=== PATIENT | male | born 1945 | race Caucasian/White ===

== ENCOUNTER 2016-05-04 09:14 | Emergency (ER) | payer MEDICARE, BC ==
[~2016-05-04] VITALS: Ht 177.8 cm; Wt 84.1 kg
[~2016-05-04 09:14] MED LIST: ADVIL 200MG TA200 MG PO; ASPIRIN 32325 MG/TA1 PO; ASPIRIN E.C.325 MG PO; FLOMAX0.4 MG PO; IBU800 M1 PO; NO HOME MEDICATIONS; NORCO 325 MG-51 TAB PO; PERCOCET 325 MG1 TA2 PO
[2016-05-04 09:16] VITALS: TEMP 97.1
[2016-05-04] MEDS ORDERED: DIOVAN/HCT 12.51 TA1 PO (09:19)
[2016-05-04] MEDS ORDERED: NEXIUM 40MG40 MG PO (09:19)
[2016-05-04] MEDS ORDERED: ASPIRIN 81M81 MG/TA2 PO (09:20)
[2016-05-04 09:43] LABS: BASO # 0.1 (0.0-0.2); EOS # 0.3 (0.0-0.7); EOS % 3.6 % (0-4.0); GRAN # 4.6 (1.4-6.5); GRAN % 57.7 % (42.2-75.2); HEMATOCRIT 46.4 % (42.0-52.0); HEMOGLOBIN 16.1 g/dl (13.5-18.0); LYMPH % 25.2 % (20.0-51.0); MEAN CELL VOLUME 96 fl (80.0-100.0); MEAN CORPUSCULAR HEMOGLOBIN 33 pg (27.0-31.0); MEAN CORPUSCULAR HGB CONC 35 g/dl (33.0-37.0); MEAN PLATELET VOLUME 9.9 fl (7.4-10.4); MONO % 12.1 % (1.7-9.3); PLATELET COUNT 191 K/mm3 (130-400); RED BLOOD COUNT 4.86 M/mm3 (4.20-5.60); REDCELL DISTRIBUTION WIDTH-CV 12.6 % (11.5-14.5)
[2016-05-04 09:47] LABS: ADJUSTED CALCIUM 9.3 mg/dL (8.4-10.2); ALBUMIN 4.2 gm/dL (3.5-5.0); BILIRUBIN,TOTAL 0.9 mg/dL (0.0-1.0); CALCIUM 9.5 mg/dL (8.4-10.2); CREATININE, serum 1.05 mg/dL (0.66-1.25); POTASSIUM 4.2 mmol/L (3.4-5.0); TOTAL PROTEIN 7.9 gm/dL (6.4-8.2)
[2016-05-04 10:45] LABS: PH 5 (5-8); SQUAMOUS EPITHELIAL None Seen /hpf; URINE APPEARANCE Hazy; URINE BACTERIA None Seen /hpf; URINE BILIRUBIN Negative (NEGATIVE); URINE BLOOD 3+ (NEGATIVE); URINE COLOR Yellow; URINE GLUCOSE Negative (NEGATIVE); URINE KETONE Negative (NEGATIVE); URINE RBC >50 /hpf; URINE UROBILINOGEN Negative (NEGATIVE)
[2016-05-04] MEDS ORDERED: FLOMAX 0.40.4 MG/CAP PO (11:10)
[2016-05-04] MEDS ORDERED: PERCOCET 325 MG1 TA2 PO (11:10)
[2016-05-04] MEDS ORDERED: ZOFRAN ODT4 MG PO (11:10)
[2016-05-04 11:14] VITALS: BP 168/91; PULSE 86
== END 2016-05-04 11:24 | disposition home or self-care (01) ==
LOC: COL.ER 09:14
PROVIDERS: Emergency Medicine
DX: N20.1 Calculus of ureter (principal); N20.0 Calculus of kidney; Z87.442 Personal history of urinary calculi; I10 Essential (primary) hypertension; F17.210 Nicotine dependence, cigarettes, uncomplicated
CPT/HCPCS: J1885; J2405; J3010; J7030

== ENCOUNTER 2017-01-13 10:46 | Emergency (ER) | payer MEDICARE, BC ==
[~2017-01-13] VITALS: Ht 177.8 cm; Wt 85.0 kg
[~2017-01-13 10:46] MED LIST changes: +ASPIRIN 81M81 MG/TA2 PO; +DIOVAN/HCT 12.51 TA1 PO; +FLOMAX 0.40.4 MG/CAP PO; +NEXIUM 40MG40 MG PO; +ZOFRAN ODT4 MG PO
[2017-01-13 10:51] VITALS: TEMP 97.7
[2017-01-13] MEDS ORDERED: MOBIC15 MG PO (11:29)
[2017-01-13 12:14] LABS: COLLECTION METHOD CLEAN CATCH
[2017-01-13 12:21] LABS: BASO # 0.1 (0.0-0.2); BASO % 0.8 % (0.0-2.0); EOS # 0.2 (0.0-0.7); EOS % 1.8 % (0-4.0); GRAN # 4.5 (1.4-6.5); GRAN % 54.3 % (42.2-75.2); HEMATOCRIT 49.4 % (42.0-52.0); HEMOGLOBIN 17.6 g/dl (13.5-18.0); LYMPH # 2.6 (1.2-3.4); LYMPH % 31.9 % (20.0-51.0); MEAN CELL VOLUME 97 fl (80.0-100.0); MEAN CORPUSCULAR HEMOGLOBIN 35 pg (27.0-31.0); MEAN CORPUSCULAR HGB CONC 36 g/dl (33.0-37.0); MEAN PLATELET VOLUME 9.9 fl (7.4-10.4); MONO # 0.9 (0.1-0.6); MONO % 10.8 % (1.7-9.3); PLATELET COUNT 213 K/mm3 (130-400); RED BLOOD COUNT 5.09 M/mm3 (4.20-5.60); WHITE BLOOD COUNT 8.3 K/mm3 (4.8-10.8)
[2017-01-13 12:24] LABS: MUCOUS Present /lpf; PH 5 (5-8); SQUAMOUS EPITHELIAL 0-2 /hpf; URINE APPEARANCE Clear; URINE BACTERIA Rare /hpf; URINE BILIRUBIN Negative (NEGATIVE); URINE BLOOD Negative (NEGATIVE); URINE COLOR Yellow; URINE GLUCOSE Negative (NEGATIVE); URINE KETONE Negative (NEGATIVE); URINE LEUKOCYTE ESTERASE Negative (NEGATIVE); URINE PROTEIN(semi-quant) 1+ (NEGATIVE); URINE RBC 0-2 /hpf; URINE UROBILINOGEN Negative (NEGATIVE)
[2017-01-13 12:28] LABS: ADJUSTED CALCIUM 8.7 mg/dL (8.4-10.2); ALBUMIN 4.8 gm/dL (3.5-5.0); BILIRUBIN,TOTAL 0.9 mg/dL (0.0-1.0); CALCIUM 9.3 mg/dL (8.4-10.2); CREATININE, serum 0.83 mg/dL (0.66-1.25); POTASSIUM 4.2 mmol/L (3.4-5.0); TOTAL PROTEIN 8.1 gm/dL (6.4-8.2)
[2017-01-13] MEDS ORDERED: NORFLEX 10100 MG/TAB PO (14:35)
[2017-01-13] MEDS ORDERED: PERCOCET 325 MG1 TA2 PO (14:35)
[2017-01-13 14:50] VITALS: BP 201/105; PULSE 61
== END 2017-01-13 14:50 | disposition home or self-care (01) ==
LOC: COL.ER 10:46
PROVIDERS: Emergency Medicine
DX: S29.012A Strain of muscle and tendon of back wall of thorax, initial encounter (principal); S39.012A Strain of muscle, fascia and tendon of lower back, initial encounter; M54.31 Sciatica, right side; I10 Essential (primary) hypertension; K21.9 Gastro-esophageal reflux disease without esophagitis; Z90.49 Acquired absence of other specified parts of digestive tract; Z86.79 Personal history of other diseases of the circulatory system; Z79.82 Long term (current) use of aspirin
CPT/HCPCS: J1170; J1885; J2360; J7050; Q9967

== ENCOUNTER → 2017-01-24 | Outpatient (CLI) | payer MEDICARE, BC ==
[~2017-01-24] VITALS: Ht 177.8 cm; Wt 88.9 kg
[~2017-01-24] MED LIST changes: +MOBIC15 MG PO; +NORFLEX 10100 MG/TAB PO; +PREDNISONE20 MG PO
[2017-01-24 13:27] VITALS: BP 182/113; PULSE 84
[2017-01-24 14:20] VITALS: BP 182/104; PULSE 73
== END ==
LOC: COL.RAD 13:00
DX: M48.00 Spinal stenosis, site unspecified (principal); M54.10 Radiculopathy, site unspecified; Z80.1 Family history of malignant neoplasm of trachea, bronchus and lung; Z80.3 Family history of malignant neoplasm of breast; F17.210 Nicotine dependence, cigarettes, uncomplicated
CPT/HCPCS: J3301

== ENCOUNTER 2017-12-23 19:05 | Emergency (ER) | payer MEDICARE, BC ==
[~2017-12-23] VITALS: Ht 177.8 cm; Wt 86.4 kg
[2017-12-23 19:12] VITALS: BP 133/71; TEMP 98.2
[2017-12-23] MEDS ORDERED: GLUCOPHAGE500 MG/TAB PO (19:38)
[2017-12-23] MEDS ORDERED: LIPITOR 10MG10 MG PO (19:38)
[2017-12-23 20:04] VITALS: PULSE 82
== END 2017-12-23 20:04 | disposition home or self-care (01) ==
LOC: COL.ER 19:05
DX: S61.211A Laceration without foreign body of left index finger without damage to nail, initial encounter (principal); F17.210 Nicotine dependence, cigarettes, uncomplicated; Z79.84 Long term (current) use of oral hypoglycemic drugs; Z86.79 Personal history of other diseases of the circulatory system; W26.0XXA Contact with knife, initial encounter; Y92.009 Unspecified place in unspecified non-institutional (private) residence as the place of occurrence of the external cause

== ENCOUNTER 2018-05-11 09:24 | Inpatient (IN) | payer MEDICARE, BC ==
[~2018-05-11] VITALS: Ht 177.8 cm; Wt 91.6 kg
[~2018-05-11 09:24] MED LIST changes: +GLUCOPHAGE500 MG/TAB PO; +LIPITOR 10MG10 MG PO
[2018-05-11] MEDS ORDERED: COZAAR100 MG PO (09:45)
[2018-05-11] MEDS ORDERED: ASPIRIN 81M81 MG/TA2 PO (09:46)
[2018-05-11 09:52] LABS: BASO # 0.1 (0.0-0.2); BASO % 0.9 % (0.0-2.0); EOS # 0.1 (0.0-0.7); EOS % 1.8 % (0-4.0); GRAN # 4.9 (1.4-6.5); GRAN % 62.2 % (42.2-75.2); HEMATOCRIT 45.1 % (42.0-52.0); HEMOGLOBIN 15.9 g/dl (13.5-18.0); LYMPH % 25.4 % (20.0-51.0); MEAN CELL VOLUME 96 fl (80.0-100.0); MEAN CORPUSCULAR HEMOGLOBIN 34 pg (27.0-31.0); MEAN CORPUSCULAR HGB CONC 35 g/dl (33.0-37.0); MEAN PLATELET VOLUME 9.9 fl (7.4-10.4); MONO # 0.7 (0.1-0.6); MONO % 9.1 % (1.7-9.3); PLATELET COUNT 163 K/mm3 (130-400); RED BLOOD COUNT 4.71 M/mm3 (4.20-5.60); REDCELL DISTRIBUTION WIDTH-CV 12.1 % (11.5-14.5)
[2018-05-11 10:00] LABS: ALBUMIN 4.3 gm/dL (3.5-5.0); BILIRUBIN,TOTAL 0.5 mg/dL (0.0-1.0); CALCIUM 9.1 mg/dL (8.4-10.2); CREATININE, serum 0.7 mg/dL (0.66-1.25); POTASSIUM 3.8 mmol/L (3.4-5.0); TOTAL PROTEIN 7.5 gm/dL (6.4-8.2)
[2018-05-11 13:36] VITALS: BP 156/70; PULSE 63; TEMP 97.7
--- NOTE | 2018-05-11 15:00 | NUR ---
Patient admission and assessment complete. patient is A&O x3. Patient states he is not feeling dizzy or nauseous, no palpitations and no SOB. patient states he has numbness in tingling in feet occassionally and that has been a prior issue before coming here. patients BP is 170/90. pt is resting in bed with family at bedside. patient orderd dinner and denies any other needs at this time. patient and family oriented to room, call light within reach.
[2018-05-11 15:41] VITALS: BP 170/90; PULSE 69; TEMP 97.9
--- NOTE | 2018-05-11 15:45 | NUR ---
patient passed bedside swallow test with no issues and diet was advanced to [employer]-Carb [employer]. Patient is doing well at this time and son is at bedside.
[2018-05-11 18:33] VITALS: BP 140/76; PULSE 73; TEMP 97.9
--- NOTE | 2018-05-11 19:21 | NUR ---
pATIENT RESTING IN BED. PATIENT STATING HE FEELS MUCH BETTER THAN HE HAS. BP HAS GONE DOWN, LAST RECORDED WAS 140/76. PATIENT WAS INSTRUCTED TO NOT GET UP WITHOUT ASSISTANCE AND TO USE CALL LIGHT. PATIENT DID GO TO RESTROOM WITHOUT CALLING. BED ALARM ON AND CALL LIGHT WITHIN REACH, PT REMINDED TO CALL TO GET UP. PATIENT DOES SEEM LIKE HE IS IN A BETTER MOOD THAN WE HE ARRIVED. NEURO CHECKS HAVE BEEN GOOD SINCE ARRIVING TO FLOOR. REPORT GIVEN TO KIANNA GONZALEZ.
--- NOTE | 2018-05-11 20:30 | NUR ---
Shift assessment complete. Pt resting in bed, awake, a&o, cooperative c cares. Pt reports "a little headache". Denies any other pain or c/o. INT patent. Tele in place. Pt denies needs. Call light in reach, bed alarm on. Will monitor.
[2018-05-11 21:13] VITALS: BP 137/67; PULSE 73; TEMP 98.2
[2018-05-12] VITALS (7 sets, daily range): BP systolic 119–152; BP diastolic 64–78; PULSE 60–80; TEMP 98–98.7
[2018-05-12 06:08] LABS: BASO # 0.1 (0.0-0.2); BASO % 0.8 % (0.0-2.0); EOS # 0.1 (0.0-0.7); EOS % 1.1 % (0-4.0); GRAN # 5.6 (1.4-6.5); GRAN % 60.7 % (42.2-75.2); HEMATOCRIT 45.7 % (42.0-52.0); HEMOGLOBIN 16.3 g/dl (13.5-18.0); LYMPH # 2.3 (1.2-3.4); LYMPH % 25.6 % (20.0-51.0); MEAN CELL VOLUME 96 fl (80.0-100.0); MEAN CORPUSCULAR HEMOGLOBIN 34 pg (27.0-31.0); MEAN CORPUSCULAR HGB CONC 36 g/dl (33.0-37.0); MONO # 1.1 (0.1-0.6); MONO % 11.5 % (1.7-9.3); PLATELET COUNT 189 K/mm3 (130-400); RED BLOOD COUNT 4.78 M/mm3 (4.20-5.60); REDCELL DISTRIBUTION WIDTH-CV 12.3 % (11.5-14.5)
--- NOTE | 2018-05-12 06:10 | NUR ---
Pt resting in bed, condition unchanged. Pt has rested well this shift c very few needs. Denies pain or any other c/o. Denies needs. Call light in reach.
[2018-05-12 06:25] LABS: CHOLESTEROL RISK RATIO 4.7; CREATININE, serum 0.87 mg/dL (0.66-1.25); POTASSIUM 4.1 mmol/L (3.4-5.0)
--- NOTE | 2018-05-12 07:38 | NUR ---
Bedside shift report given to Jaycee HUTCHISON to assume pt cares.
--- NOTE | 2018-05-12 08:14 | NUR ---
PT AMBULATING IN ROOM AND GAIT STEADY. PT A/O X4. PT IS WANTING TO GO HOME. PT DENIES PAIN OR DISCOMFORT. NO NEEDS AT THIS TIME, CALL LIGHT WITHIN REACH.
--- NOTE | 2018-05-12 10:09 | NUR ---
JONATAN met with the patient to discuss discharge plan. The patient lives outside of [place] with his girlfriend, Yana. He reports independence with ADLs and does not use any DME. The patient's PCP is Dr. Corey García and he receives his medications at the [facility]. He reports no difficulties obtaining his meds. The patient does not have advanced directives in EMR, but he states that he believes he has them completed at that they are at his PCP's office. JONATAN attempted to contact his PCP's office to request a copy. JONATAN left a voicemail. The patient plans to return home upon discharge. No additional needs at this time.
--- NOTE | 2018-05-12 17:45 | NUR ---
PT DOING WELL WITH NO RESIDUALS FROM STROKE. PT HAS IN ROOM WITH HIM. PT DENIES ANY PAIN OR DISCOMFORT AND IS JUST WANTING TO GO HOME. PT HAS BEEN TAKEN DOWN EARLIER THIS AM FOR AN ECHO. PT AMBULATEDS IN ROOM, GAIT STEADY. NO NEEDS AT THIS TIME CALL LIGHT WITHIN REACH.
--- NOTE | 2018-05-12 18:41 | NUR ---
PT REFUSES TO USE SCDs.
--- NOTE | 2018-05-12 20:44 | NUR ---
Shift assessment complete. Pt resting in bed, awake, a&o, cooperative c cares. Pt denies pain or any other c/o at this time, states "I'm just ready to get out of here". INT patent. Tele in place. Pt denies needs. Call light in reach, will monitor.
--- NOTE | 2018-05-13 06:50 | NUR ---
Reported on to KIANNA Ramírez.
--- NOTE | 2018-05-13 07:03 | NUR ---
Pt resting in bed, condition unchanged. Pt has rested well this shift c very few needs. NC remain unremarkable. Pt denies needs. Call light in reach. Bedside report given to Desiree RN to assume pt cares.
--- NOTE | 2018-05-13 07:30 | NUR ---
Assessment as charted. Telemetry in place. INT CDI in right forearm. Pt denies c/o pain. Neuro checks WNL. Pt states "wants to go home". Ambulates independently w/ steady gait.
[2018-05-13 07:32] VITALS: BP 159/85; PULSE 66; TEMP 97.8
[2018-05-13] MEDS ORDERED: LIPITOR 10MG10 MG PO (09:06)
[2018-05-13] MEDS ORDERED: ASPIRIN 32325 MG/TAB PO (09:06)
[2018-05-13] MEDS ORDERED: LOFIBRA54 MG PO (09:07)
--- NOTE | 2018-05-13 09:10 | NUR ---
MD consult. Pt to be discharged.
--- NOTE | 2018-05-13 09:14 | NUR ---
JONATAN and JONATAN student attended clinical rounds. The hospitalist discussed physical therapies recommendation of outpatient PT. The patient reports that he would be agreeable to outpatient PT. JONATAN and JONATAN student then followed up with the patient to discuss outpatient therapy clinics. The patient reports that he would like make the appointment himself. The patient's PA is to provide the patient with a script for outpatient PT. The patient is to discharge back home today, 05/13. No additional needs at this time.
--- NOTE | 2018-05-13 09:45 | NUR ---
Discharge orders noted. D/C INT cath tip intact. D/C telemetry. Discharge teaching completed on diet, following up with PCP, exercise, smoking cessation, and medication regimine.
--- NOTE | 2018-05-13 11:54 | NUR ---
Discharge education completed with the patient and his . He verbalized understanding of appointments and follow appointments. Escorted out per this nurse. INT removed per she, Segundo CASTELAN.
== END 2018-05-13 13:53 | disposition home or self-care (01) | DRG 66 ==
LOC: COL.ER 09:24 → MEDICAL 10:57
PROVIDERS: Emergency Medicine; ADMIT Hospitalist
DX: I63.9 Cerebral infarction, unspecified (principal); I10 Essential (primary) hypertension; I65.23 Occlusion and stenosis of bilateral carotid arteries; I65.03 Occlusion and stenosis of bilateral vertebral arteries; E78.5 Hyperlipidemia, unspecified; F17.210 Nicotine dependence, cigarettes, uncomplicated; R27.8 Other lack of coordination; R42 Dizziness and giddiness; J44.9 Chronic obstructive pulmonary disease, unspecified; E78.1 Pure hyperglyceridemia; E11.9 Type 2 diabetes mellitus without complications
CPT/HCPCS: 99223-AI; 99232-AI; 99239; J1644; J2060; J2405; J7040; Q9967

== ENCOUNTER 2022-06-16 08:20 | Emergency (ER) | payer MEDICARE, BC ==
[~2022-06-16] VITALS: Ht 177.8 cm; Wt 88.6 kg
[~2022-06-16 08:20] MED LIST changes: +ASPIRIN 32325 MG/TAB PO; +COZAAR100 MG PO; +LOFIBRA54 MG PO
[2022-06-16 08:27] VITALS: TEMP 97.7
[2022-06-16 08:58] LABS: BASO # 0.1 K/mm3 (0.0-0.2); BASO % 0.8 % (0.0-2.0); EOS # 0.1 K/mm3 (0.0-0.7); GRAN # 6.9 K/mm3 (1.4-6.5); GRAN % 66.8 % (42.2-75.2); HEMATOCRIT 43.6 % (42.0-52.0); HEMOGLOBIN 15.5 g/dl (13.5-18.0); LYMPH # 1.7 K/mm3 (1.2-3.4); LYMPH % 16.9 % (20.0-51.0); MEAN CELL VOLUME 96 fl (80.0-100.0); MEAN CORPUSCULAR HEMOGLOBIN 34 pg (27-31); MEAN CORPUSCULAR HGB CONC 36 g/dl (33.0-37.0); MEAN PLATELET VOLUME 9.9 fl (7.4-10.4); MONO # 1.4 K/mm3 (0.1-0.6); MONO % 13.7 % (1.7-9.3); PLATELET COUNT 227 K/mm3 (130-400); RED BLOOD COUNT 4.53 M/mm3 (4.20-5.60); REDCELL DISTRIBUTION WIDTH-CV 12.7 % (11.5-14.5)
[2022-06-16 09:17] LABS: BILIRUBIN,TOTAL 0.8 mg/dL (0.2-1.2); CALCIUM 9.3 mg/dL (8.4-10.2); CREATININE, serum 1.29 mg/dL (0.72-1.25); TOTAL PROTEIN 7.1 gm/dL (6.2-8.1)
[2022-06-16 11:06] VITALS: BP 160/89
[2022-06-16] MEDS ORDERED: ZOFRAN ODT4 MG PO (11:48)
[2022-06-16] MEDS ORDERED: PERCOCET 325 MG1 TA2 PO (11:48)
[2022-06-16] MEDS ORDERED: FLOMAX 0.40.4 MG/CAP PO (11:48)
[2022-06-16 12:17] VITALS: PULSE 89
== END 2022-06-16 12:17 | disposition home or self-care (01) ==
LOC: COL.ER 08:20
PROVIDERS: Personal Emergency Response Attendant
DX: N13.2 Hydronephrosis with renal and ureteral calculous obstruction (principal); N21.0 Calculus in bladder; F17.200 Nicotine dependence, unspecified, uncomplicated; Z87.19 Personal history of other diseases of the digestive system; Z98.890 Other specified postprocedural states
CPT/HCPCS: J2270; J2405; J3010; J7030; Q9967